=== PATIENT | male | born 1925 | race Two or more races ===

== ENCOUNTER 2016-02-21 16:34 | Inpatient (IN) | payer MEDICARE, OTHER ==
[~2016-02-21] VITALS: Ht 167.6 cm; Wt 52.2 kg
[2016-02-21] MEDS ORDERED: IV SET PRIMARY 1 EA INFUS.SET MC ONE ×3 (16:52→19:41)
[2016-02-21] MEDS ORDERED: IV NS 0.9% 1,000 ML ONE (16:52)
[2016-02-21] MEDS ORDERED: IV NS 0.9% 1,000 ML BAG IV ONE (17:00)
[2016-02-21 17:04] LABS: BASOPHILS % (AUTO) 0.4 % (0.0-2.0); DIFF TOTAL % 100 %; EOSINOPHILS # (AUTO) 0.1 /CMM (0.0-0.7); EOSINOPHILS % (AUTO) 0.8 % (0.0-6.0); HEMATOCRIT 28 % (39-51); HEMOGLOBIN 9.3 g/dL (13.5-17.5); LYMPHOCYTES # (AUTO) 1.6 /CMM (0.8-4.8); LYMPHOCYTES % (AUTO) 18.9 % (20.0-44.0); MEAN CORPUSCULAR HEMOGLOBIN 31 PG (26.0-33.0); MEAN CORPUSCULAR HGB CONC 33 g/dl (31.0-36.0); MEAN CORPUSCULAR VOLUME 94 fL (80-96); MONOCYTES # (AUTO) 0.8 /CMM (0.1-1.30); MONOCYTES % (AUTO) 9.4 % (2.0-12.0); NEUTROPHILS # (AUTO) 5.9 /CMM (1.8-8.9); NEUTROPHILS % (AUTO) 70.5 % (43.0-81.0); PLATELET COUNT (AUTO) 228 /CMM (150-450); RED BLOOD CELL COUNT(AUTO) 3.01 MIL/uL (4.5-6.0); WHITE BLOOD COUNT (AUTO) 8.4 K/uL (4.3-11.0)
[2016-02-21 17:13] LABS: ANION GAP 10 (5-14); CALCIUM, SERUM 8.5 mg/dL (8.5-10.1); CARBON DIOXIDE 28 mmol/L (21-32); CHLORIDE 103 mmol/L (98-107); CREATININE 1.5 mg/dL (0.6-1.3); GLUCOSE 107 mg/dL (74-106); POTASSIUM 5.2 mmol/L (3.5-5.1); SODIUM SERUM 136 mmol/L (136-145); UREA NITROGEN, BLOOD 44 mg/dL (7-18)
[2016-02-21] MEDS ORDERED: IV D5/0.45 NACL 0 ML IV ONE (17:16)
[2016-02-21] MEDS ORDERED: IV SET PRIMARY PUMP SET 1 EA INFUS.SET MC ONE ×2 (17:16→23:28)
[2016-02-21 17:19] LABS: ALANINE AMINOTRANSFERASE 19 U/L (12-78); ALBUMIN 2.4 g/dL (3.4-5.0); ASPARTATE AMINOTRANSFERASE 19 U/L (15-37); BILIRUBIN,DIRECT 0.3 mg/dL (0.0-0.2); BILIRUBIN,TOTAL 0.4 mg/dL (0.2-1.0); INDIRECT BILIRUBIN 0.1 mg/dL (0.0-1.1); TOTAL PROTEIN, SERUM 6.2 g/dL (6.4-8.2)
[2016-02-21 17:21] LABS: TROPONIN I < 0.017 ng/mL (0.00-0.056)
[2016-02-21 17:22] LABS: INR 0.97 (0.87-1.13); PROTHROMBIN TIME 10.5 SECS (9.5-12.7)
[2016-02-21 17:39] LABS: LACTIC ACID 1.4 mmol/L (0.4-2.0)
[2016-02-21] MEDS ORDERED: VALS80TA2 PO (18:10)
[2016-02-21] MEDS ORDERED: LACT10SO7 PO (18:10)
[2016-02-21] MEDS ORDERED: BISA10SU8 RC (18:10)
[2016-02-21] MEDS ORDERED: AMLO5TAB4 PO (18:10)
[2016-02-21] MEDS ORDERED: CLON0.1T PO (18:10)
[2016-02-21] MEDS ORDERED: MAGN400O6 PO (18:10)
[2016-02-21] MEDS ORDERED: OMEG10006 PO (18:10)
[2016-02-21] MEDS ORDERED: ACET-868 PO ×2 (18:10)
[2016-02-21] MEDS ORDERED: DOCU-270 PO (18:10)
[2016-02-21] MEDS ORDERED: ENOX40DI SQ (18:10)
[2016-02-21] MEDS ORDERED: METO25TA6 PO (18:10)
[2016-02-21] MEDS ORDERED: ASPI81TA2 PO (18:10)
[2016-02-21] MEDS ORDERED: BLOO-697 IN (18:10)
[2016-02-21] MEDS ORDERED: SITA100T PO (18:10)
[2016-02-21] MEDS ORDERED: CLOP75TA2 PO (18:10)
[2016-02-21] MEDS ORDERED: SENN8.6T6 PO (18:10)
[2016-02-21] MEDS ORDERED: INSU100V11 SQ (18:11)
[2016-02-21 19:05] LABS: KETONES,URINE Negative (NEGATIVE); LEUKOCYTE ESTERASE ,URINE Large (NEGATIVE)
[2016-02-21 19:19] LABS: ADD UA MICROSCOPIC YES
[2016-02-21] MEDS ORDERED: PIPERACILLIN /TAZOBACTAM 3.375 G in IV D5W 50 ML IV ONE (19:30)
[2016-02-21 19:32] LABS: ADD URINE CULTURE YES
[2016-02-21] MEDS ORDERED: PIPERACILLIN /TAZOBACTAM 3.375 G VIAL IV ONE (19:41)
[2016-02-21] MEDS ORDERED: IV NS 0.9% 50 ML IV ONE (19:41)
[2016-02-21 20:30] VITALS: BP 165/72
[2016-02-21] MEDS ORDERED: IV NS 0.9% 1,000 ML BAG IV PRN (21:00)
[2016-02-21] MEDS ORDERED: DEXTROSE 50%-WATER 50 ML DISP.SYRIN IV PRN (21:00)
[2016-02-21] MEDS ORDERED: ONDANSETRON HCL/PF 4 MG/2 ML VIAL IV PRN (21:00)
[2016-02-21] MEDS ORDERED: hydrALAZINE HCL 25 MG TABLET PO PRN (21:30)
[2016-02-21] MEDS: SENNOSIDES 8.6 MG TABLET PO SCH (23:30)
[2016-02-21] MEDS ORDERED: MAGNESIUM HYDROXIDE 30 ML UDC PO PRN (23:30)
[2016-02-22] VITALS (8 sets, daily range): BP systolic 115–160; BP diastolic 51–75
[2016-02-22] MEDS: BLOOD SUGAR DIAGNOSTIC 1 EACH STRIP IN SCH ×5 (00:08→22:58)
[2016-02-22] MEDS: IV NS 0.9% 1,000 ML IV PRN ×2 (00:09→18:47)
[2016-02-22 07:07] LABS: BASOPHILS % (AUTO) 0.5 % (0.0-2.0); DIFF TOTAL % 100 %; EOSINOPHILS % (AUTO) 0.7 % (0.0-6.0); HEMATOCRIT 28 % (39-51); HEMOGLOBIN 9.4 g/dL (13.5-17.5); LYMPHOCYTES # (AUTO) 1.3 /CMM (0.8-4.8); LYMPHOCYTES % (AUTO) 17.2 % (20.0-44.0); MEAN CORPUSCULAR HEMOGLOBIN 31 PG (26.0-33.0); MEAN CORPUSCULAR HGB CONC 33 g/dl (31.0-36.0); MEAN CORPUSCULAR VOLUME 94 fL (80-96); MONOCYTES # (AUTO) 0.6 /CMM (0.1-1.30); MONOCYTES % (AUTO) 8.1 % (2.0-12.0); NEUTROPHILS # (AUTO) 5.5 /CMM (1.8-8.9); NEUTROPHILS % (AUTO) 73.5 % (43.0-81.0); PLATELET COUNT (AUTO) 212 /CMM (150-450); RED BLOOD CELL COUNT(AUTO) 3.01 MIL/uL (4.5-6.0); WHITE BLOOD COUNT (AUTO) 7.4 K/uL (4.3-11.0)
[2016-02-22 07:37] LABS: CALCIUM, SERUM 8.2 mg/dL (8.5-10.1); CREATININE 1.3 mg/dL (0.6-1.3); PHOSPHORUS 3.6 mg/dL (2.5-4.9); POTASSIUM 5.3 mmol/L (3.5-5.1)
[2016-02-22] MEDS ORDERED: BISACODYL SUPP (10 MG) 10 MG/SUPP.RECT SUPP.RECT RC PRN (09:30)
[2016-02-22] MEDS ORDERED: MAGNESIUM HYDROXIDE 30 ML UDC PO PRN (09:30)
[2016-02-22] MEDS ORDERED: CLONIDINE HCL 0.1 MG TABLET PO PRN (09:30)
[2016-02-22] MEDS ORDERED: ACETAMINOPHEN 325 MG TABLET PO PRN (09:30)
[2016-02-22] MEDS ORDERED: SITAGLIPTIN PHOSPHATE 50 MG TABLET PO SCH (09:30)
[2016-02-22] MEDS ORDERED: LACTULOSE 10 G/15 ML UDC (PYXIS) PO PRN (10:00)
[2016-02-22] MEDS: ASPIRIN 81 MG TAB.CHEW PO SCH (10:15)
[2016-02-22] MEDS: SITAGLIPTIN PHOSPHATE 50 MG TABLET PO SCH (10:16)
[2016-02-22] MEDS: AMLODIPINE BESYLATE 5 MG TABLET PO SCH (10:16)
[2016-02-22] MEDS: CLOPIDOGREL BISULFATE 75 MG TABLET PO SCH (10:16)
[2016-02-22] MEDS: VALSARTAN 80 MG TABLET PO SCH (10:16)
[2016-02-22] MEDS: ENOXAPARIN SODIUM 40 MG/0.4 ML DISP.SYRIN SQ SCH (10:18)
[2016-02-22] MEDS ORDERED: BLOOD SUGAR DIAGNOSTIC 1 EACH STRIP IN SCH (12:00)
[2016-02-22] MEDS: INSULIN REGULAR, HUMAN 100 UNIT/ML 3 ML VIAL SQ PRN ×2 (12:08→17:04)
[2016-02-22] MEDS ORDERED: METOPROLOL TARTRATE 25 MG TABLET PO SCH (17:00)
[2016-02-22] MEDS: DOCUSATE SODIUM 100 MG CAPSULE PO SCH (17:00)
[2016-02-22] MEDS: ACETAMINOPHEN 325 MG TABLET PO PRN (17:00)
[2016-02-22] MEDS: SENNOSIDES 8.6 MG TABLET PO SCH (22:00)
[2016-02-22] MEDS ORDERED: SENNOSIDES 8.6 MG TABLET PO SCH (22:00)
[2016-02-23] VITALS (7 sets, daily range): BP systolic 140–161; BP diastolic 61–96
[2016-02-23] MEDS: BLOOD SUGAR DIAGNOSTIC 1 EACH STRIP IN SCH ×4 (06:50→22:23)
[2016-02-23 06:53] LABS: BASOPHILS % (AUTO) 0.4 % (0.0-2.0); DIFF TOTAL % 100 %; EOSINOPHILS % (AUTO) 0.7 % (0.0-6.0); HEMATOCRIT 27 % (39-51); HEMOGLOBIN 8.9 g/dL (13.5-17.5); LYMPHOCYTES # (AUTO) 1.6 /CMM (0.8-4.8); LYMPHOCYTES % (AUTO) 23.4 % (20.0-44.0); MEAN CORPUSCULAR HEMOGLOBIN 31 PG (26.0-33.0); MEAN CORPUSCULAR HGB CONC 33 g/dl (31.0-36.0); MEAN CORPUSCULAR VOLUME 93 fL (80-96); MONOCYTES # (AUTO) 0.7 /CMM (0.1-1.30); MONOCYTES % (AUTO) 10.5 % (2.0-12.0); NEUTROPHILS # (AUTO) 4.3 /CMM (1.8-8.9); PLATELET COUNT (AUTO) 184 /CMM (150-450); RED BLOOD CELL COUNT(AUTO) 2.88 MIL/uL (4.5-6.0); WHITE BLOOD COUNT (AUTO) 6.7 K/uL (4.3-11.0)
[2016-02-23 07:15] LABS: CALCIUM, SERUM 8.3 mg/dL (8.5-10.1); CREATININE 1.1 mg/dL (0.6-1.3); PHOSPHORUS 3.5 mg/dL (2.5-4.9)
[2016-02-23] MEDS: BOOST GLUCOSE CONTROL VANILLA 237 ML BOX PO SCH ×3 (08:37→17:07)
[2016-02-23] MEDS: CLOPIDOGREL BISULFATE 75 MG TABLET PO SCH (08:38)
[2016-02-23] MEDS: VALSARTAN 80 MG TABLET PO SCH (08:38)
[2016-02-23] MEDS: SITAGLIPTIN PHOSPHATE 50 MG TABLET PO SCH (08:38)
[2016-02-23] MEDS: ASPIRIN 81 MG TAB.CHEW PO SCH (08:39)
[2016-02-23] MEDS: DOCUSATE SODIUM 100 MG CAPSULE PO SCH ×2 (08:39→17:07)
[2016-02-23] MEDS: ACETAMINOPHEN 325 MG TABLET PO SCH (08:39)
[2016-02-23] MEDS: AMLODIPINE BESYLATE 5 MG TABLET PO SCH (08:39)
[2016-02-23] MEDS: ENOXAPARIN SODIUM 40 MG/0.4 ML DISP.SYRIN SQ SCH (08:48)
[2016-02-23] MEDS ORDERED: Medication Not On Formulary EA (Omega-3 Fatty Acids (Omega-3) 1,000 MG) PO SCH (09:00)
[2016-02-23] MEDS: INSULIN REGULAR, HUMAN 100 UNIT/ML 3 ML VIAL SQ PRN ×3 (12:02→22:28)
[2016-02-23] MEDS: IV NS 0.9% 1,000 ML IV PRN (13:52)
[2016-02-23] MEDS: SENNOSIDES 8.6 MG TABLET PO SCH (22:31)
[2016-02-23] MEDS: CLONIDINE HCL 0.1 MG TABLET PO PRN (22:34)
[2016-02-24] VITALS: BP 101/53
[2016-02-24 04:00] VITALS: BP 99/56
[2016-02-24] MEDS ORDERED: PIPERACILLIN /TAZOBACTAM 2.25 G VIAL IV ONE (04:34)
[2016-02-24] MEDS ORDERED: SECONDARY IV SET 1 EA INFUS.SET MC ONE (04:35)
[2016-02-24] MEDS ORDERED: IV D5W 50 ML IV ONE (04:35)
[2016-02-24] MEDS: PIPERACILLIN IV SCH ×3 (05:20→21:56)
[2016-02-24] MEDS: TAZOBACTAM IV SCH ×3 (05:20→21:56)
[2016-02-24] MEDS: D5W IV SCH ×3 (05:20→21:56)
[2016-02-24] MEDS: BLOOD SUGAR DIAGNOSTIC 1 EACH STRIP IN SCH ×4 (06:41→22:01)
[2016-02-24 07:37] LABS: BASOPHILS % (AUTO) 0.5 % (0.0-2.0); DIFF TOTAL % 100 %; EOSINOPHILS # (AUTO) 0.1 /CMM (0.0-0.7); EOSINOPHILS % (AUTO) 1.1 % (0.0-6.0); HEMATOCRIT 25 % (39-51); HEMOGLOBIN 8.4 g/dL (13.5-17.5); LYMPHOCYTES # (AUTO) 1.4 /CMM (0.8-4.8); LYMPHOCYTES % (AUTO) 25.4 % (20.0-44.0); MEAN CORPUSCULAR HEMOGLOBIN 31 PG (26.0-33.0); MEAN CORPUSCULAR HGB CONC 33 g/dl (31.0-36.0); MEAN CORPUSCULAR VOLUME 93 fL (80-96); MONOCYTES # (AUTO) 0.7 /CMM (0.1-1.30); MONOCYTES % (AUTO) 12.8 % (2.0-12.0); NEUTROPHILS # (AUTO) 3.3 /CMM (1.8-8.9); NEUTROPHILS % (AUTO) 60.2 % (43.0-81.0); PLATELET COUNT (AUTO) 153 /CMM (150-450); WHITE BLOOD COUNT (AUTO) 5.5 K/uL (4.3-11.0)
[2016-02-24 08:00] VITALS: BP 129/60
[2016-02-24] MEDS: ASPIRIN 81 MG TAB.CHEW PO SCH (09:30)
[2016-02-24] MEDS: BOOST GLUCOSE CONTROL VANILLA 237 ML BOX PO SCH ×3 (09:30→18:06)
[2016-02-24] MEDS: CLOPIDOGREL BISULFATE 75 MG TABLET PO SCH (09:31)
[2016-02-24] MEDS: AMLODIPINE BESYLATE 5 MG TABLET PO SCH (09:31)
[2016-02-24] MEDS: SITAGLIPTIN PHOSPHATE 50 MG TABLET PO SCH (09:31)
[2016-02-24] MEDS: VALSARTAN 80 MG TABLET PO SCH (09:32)
[2016-02-24] MEDS: ACETAMINOPHEN 325 MG TABLET PO SCH (09:33)
[2016-02-24] MEDS: DOCUSATE SODIUM 100 MG CAPSULE PO SCH ×2 (09:33→18:06)
[2016-02-24] MEDS: ENOXAPARIN SODIUM 40 MG/0.4 ML DISP.SYRIN SQ SCH (09:42)
[2016-02-24 10:27] LABS: CALCIUM, SERUM 8.4 mg/dL (8.5-10.1); CREATININE 1.2 mg/dL (0.6-1.3); PHOSPHORUS 4.3 mg/dL (2.5-4.9); POTASSIUM 5.2 mmol/L (3.5-5.1)
[2016-02-24 16:00] VITALS: BP 100/48
[2016-02-24 20:20] VITALS: BP 126/52
[2016-02-24] MEDS: SENNOSIDES 8.6 MG TABLET PO SCH (22:04)
[2016-02-24] MEDS: IV NS 0.9% 1,000 ML IV PRN (22:05)
[2016-02-25] MEDS: D5W IV SCH (05:14)
[2016-02-25] MEDS: TAZOBACTAM IV SCH (05:14)
[2016-02-25] MEDS: PIPERACILLIN IV SCH (05:14)
[2016-02-25] MEDS: BLOOD SUGAR DIAGNOSTIC 1 EACH STRIP IN SCH ×4 (06:31→21:48)
[2016-02-25] MEDS: INSULIN REGULAR, HUMAN 100 UNIT/ML 3 ML VIAL SQ PRN (06:33)
[2016-02-25 06:58] LABS: BASOPHILS % (AUTO) 0.1 % (0.0-2.0); DIFF TOTAL % 100 %; EOSINOPHILS % (AUTO) 0.1 % (0.0-6.0); HEMATOCRIT 31 % (39-51); HEMOGLOBIN 10.3 g/dL (13.5-17.5); LYMPHOCYTES # (AUTO) 0.5 /CMM (0.8-4.8); LYMPHOCYTES % (AUTO) 5.8 % (20.0-44.0); MEAN CORPUSCULAR HEMOGLOBIN 31 PG (26.0-33.0); MEAN CORPUSCULAR HGB CONC 34 g/dl (31.0-36.0); MEAN CORPUSCULAR VOLUME 93 fL (80-96); MONOCYTES # (AUTO) 0.5 /CMM (0.1-1.30); MONOCYTES % (AUTO) 6.1 % (2.0-12.0); NEUTROPHILS # (AUTO) 7.4 /CMM (1.8-8.9); NEUTROPHILS % (AUTO) 87.9 % (43.0-81.0); PLATELET COUNT (AUTO) 155 /CMM (150-450); RED BLOOD CELL COUNT(AUTO) 3.33 MIL/uL (4.5-6.0); WHITE BLOOD COUNT (AUTO) 8.4 K/uL (4.3-11.0)
[2016-02-25 07:35] LABS: CALCIUM, SERUM 8.6 mg/dL (8.5-10.1); CREATININE 1.2 mg/dL (0.6-1.3); PHOSPHORUS 3.3 mg/dL (2.5-4.9); POTASSIUM 5.1 mmol/L (3.5-5.1)
[2016-02-25 08:00] VITALS: BP 173/78
[2016-02-25] MEDS: BOOST GLUCOSE CONTROL VANILLA 237 ML BOX PO SCH ×3 (08:52→17:29)
[2016-02-25] MEDS: ENOXAPARIN SODIUM 40 MG/0.4 ML DISP.SYRIN SQ SCH (08:54)
[2016-02-25] MEDS: AMLODIPINE BESYLATE 5 MG TABLET PO SCH (09:00)
[2016-02-25] MEDS: VALSARTAN 80 MG TABLET PO SCH (09:00)
[2016-02-25 10:42] VITALS: BP 100/55
[2016-02-25] MEDS: SITAGLIPTIN PHOSPHATE 50 MG TABLET PO SCH (11:01)
[2016-02-25] MEDS: ASPIRIN 81 MG TAB.CHEW PO SCH (11:01)
[2016-02-25] MEDS: DOCUSATE SODIUM 100 MG CAPSULE PO SCH ×2 (11:01→17:29)
[2016-02-25] MEDS: ACETAMINOPHEN 325 MG TABLET PO SCH (11:01)
[2016-02-25] MEDS: CLOPIDOGREL BISULFATE 75 MG TABLET PO SCH (11:01)
[2016-02-25] MEDS ORDERED: POLYETHYLENE GLYCOL 3350 17 GM POWD.PACK PO PRN (15:30)
[2016-02-25 16:00] VITALS: BP 97/50
[2016-02-25] MEDS: IV NS 0.9% 1,000 ML IV PRN (17:29)
[2016-02-25 20:00] VITALS: BP 143/73
[2016-02-25] MEDS: SENNOSIDES 8.6 MG TABLET PO SCH (21:48)
[2016-02-26] MEDS: ACETAMINOPHEN 325 MG TABLET PO PRN (03:21)
[2016-02-26] MEDS: BLOOD SUGAR DIAGNOSTIC 1 EACH STRIP IN SCH ×4 (07:33→22:23)
[2016-02-26 08:00] VITALS: BP 141/64
[2016-02-26] MEDS: BOOST GLUCOSE CONTROL VANILLA 237 ML BOX PO SCH ×3 (08:05→17:00)
[2016-02-26] MEDS: ASPIRIN 81 MG TAB.CHEW PO SCH (08:06)
[2016-02-26] MEDS: SITAGLIPTIN PHOSPHATE 50 MG TABLET PO SCH (08:06)
[2016-02-26] MEDS: ACETAMINOPHEN 325 MG TABLET PO SCH (08:06)
[2016-02-26] MEDS: DOCUSATE SODIUM 100 MG CAPSULE PO SCH ×2 (08:07→16:56)
[2016-02-26] MEDS: CLOPIDOGREL BISULFATE 75 MG TABLET PO SCH (08:07)
[2016-02-26] MEDS: VALSARTAN 80 MG TABLET PO SCH (08:07)
[2016-02-26] MEDS: ENOXAPARIN SODIUM 40 MG/0.4 ML DISP.SYRIN SQ SCH (08:08)
[2016-02-26 11:13] VITALS: BP 141/69
[2016-02-26 16:00] VITALS: BP_SYST 140; BP_SYST 171; BP_DIAS 88
[2016-02-26] MEDS: CLONIDINE HCL 0.1 MG TABLET PO PRN (17:00)
[2016-02-26 17:56] VITALS: BP 148/78
[2016-02-26 20:00] VITALS: BP 132/61
[2016-02-26] MEDS ORDERED: IV NS 0.9% 1,000 ML ONE (22:14)
[2016-02-26] MEDS: SENNOSIDES 8.6 MG TABLET PO SCH (22:25)
[2016-02-26] MEDS: IV NS 0.9% 1,000 ML IV PRN (22:26)
[2016-02-27] MEDS: BLOOD SUGAR DIAGNOSTIC 1 EACH STRIP IN SCH ×4 (05:54→21:44)
[2016-02-27 08:00] VITALS: BP_SYST 154; BP_SYST 166; BP_DIAS 73; BP_DIAS 76
[2016-02-27] MEDS: BOOST GLUCOSE CONTROL VANILLA 237 ML BOX PO SCH ×3 (08:03→17:35)
[2016-02-27] MEDS: ASPIRIN 81 MG TAB.CHEW PO SCH (08:15)
[2016-02-27] MEDS: DOCUSATE SODIUM 100 MG CAPSULE PO SCH ×2 (08:15→17:37)
[2016-02-27] MEDS: CLOPIDOGREL BISULFATE 75 MG TABLET PO SCH (08:15)
[2016-02-27] MEDS: ACETAMINOPHEN 325 MG TABLET PO SCH (08:15)
[2016-02-27] MEDS: VALSARTAN 80 MG TABLET PO SCH (08:15)
[2016-02-27] MEDS: SITAGLIPTIN PHOSPHATE 50 MG TABLET PO SCH (08:15)
[2016-02-27] MEDS: ENOXAPARIN SODIUM 40 MG/0.4 ML DISP.SYRIN SQ SCH (08:16)
[2016-02-27] MEDS ORDERED: ENOXAPARIN SODIUM 30 MG/0.3 ML DISP.SYRIN SQ SCH (11:30)
[2016-02-27 12:13] LABS: BASOPHILS % (AUTO) 0.3 % (0.0-2.0); DIFF TOTAL % 100 %; EOSINOPHILS # (AUTO) 0.1 /CMM (0.0-0.7); EOSINOPHILS % (AUTO) 0.9 % (0.0-6.0); HEMATOCRIT 28 % (39-51); HEMOGLOBIN 9.3 g/dL (13.5-17.5); LYMPHOCYTES # (AUTO) 1.2 /CMM (0.8-4.8); LYMPHOCYTES % (AUTO) 16.7 % (20.0-44.0); MEAN CORPUSCULAR HEMOGLOBIN 31 PG (26.0-33.0); MEAN CORPUSCULAR HGB CONC 33 g/dl (31.0-36.0); MEAN CORPUSCULAR VOLUME 93 fL (80-96); MONOCYTES # (AUTO) 0.5 /CMM (0.1-1.30); MONOCYTES % (AUTO) 7.3 % (2.0-12.0); NEUTROPHILS # (AUTO) 5.2 /CMM (1.8-8.9); NEUTROPHILS % (AUTO) 74.8 % (43.0-81.0); PLATELET COUNT (AUTO) 141 /CMM (150-450); RED BLOOD CELL COUNT(AUTO) 3.02 MIL/uL (4.5-6.0); WHITE BLOOD COUNT (AUTO) 6.9 K/uL (4.3-11.0)
[2016-02-27 12:24] LABS: CALCIUM, SERUM 8.5 mg/dL (8.5-10.1); PHOSPHORUS 2.7 mg/dL (2.5-4.9)
[2016-02-27] MEDS: INSULIN REGULAR, HUMAN 100 UNIT/ML 3 ML VIAL SQ PRN ×2 (12:59→21:47)
[2016-02-27 16:00] VITALS: BP 141/63
[2016-02-27 20:00] VITALS: BP 139/76
[2016-02-27] MEDS: SENNOSIDES 8.6 MG TABLET PO SCH (21:38)
[2016-02-28] MEDS: IV NS 0.9% 1,000 ML IV PRN (01:24)
[2016-02-28] MEDS: BLOOD SUGAR DIAGNOSTIC 1 EACH STRIP IN SCH ×2 (05:40→12:10)
[2016-02-28 08:00] VITALS: BP 186/81
[2016-02-28] MEDS: BOOST GLUCOSE CONTROL VANILLA 237 ML BOX PO SCH ×3 (08:57→17:00)
[2016-02-28] MEDS: DOCUSATE SODIUM 100 MG CAPSULE PO SCH ×2 (08:58→17:00)
[2016-02-28] MEDS: ASPIRIN 81 MG TAB.CHEW PO SCH (08:58)
[2016-02-28] MEDS: SITAGLIPTIN PHOSPHATE 50 MG TABLET PO SCH (08:58)
[2016-02-28] MEDS: CLOPIDOGREL BISULFATE 75 MG TABLET PO SCH (08:58)
[2016-02-28] MEDS: ACETAMINOPHEN 325 MG TABLET PO SCH (08:58)
[2016-02-28] MEDS: ENOXAPARIN SODIUM 40 MG/0.4 ML DISP.SYRIN SQ SCH (08:59)
[2016-02-28] MEDS: VALSARTAN 80 MG TABLET PO SCH (08:59)
[2016-02-28 16:00] VITALS: BP 160/72
[2016-02-28 17:05] VITALS: BP 160/72
== END 2016-02-28 17:11 | DRG 682 ==
LOC: ER 16:36 → TELE 19:51 → MED 02-24 12:48
PROVIDERS: ADMIT Internal Medicine Nephrology; ATTEND Internal Medicine Nephrology
DX: N17.0 Acute kidney failure with tubular necrosis (principal); G93.40 Encephalopathy, unspecified; N39.0 Urinary tract infection, site not specified; E11.9 Type 2 diabetes mellitus without complications; R00.1 Bradycardia, unspecified; I12.9 Hypertensive chronic kidney disease with stage 1 through stage 4 chronic kidney disease, or unspecified chronic kidney disease; N18.9 Chronic kidney disease, unspecified; E11.22 Type 2 diabetes mellitus with diabetic chronic kidney disease; E87.5 Hyperkalemia; F03.90 Unspecified dementia, unspecified severity, without behavioral disturbance, psychotic disturbance, mood disturbance, and anxiety; I73.9 Peripheral vascular disease, unspecified; Z96.649 Presence of unspecified artificial hip joint; Z98.61 Coronary angioplasty status; Z85.028 Personal history of other malignant neoplasm of stomach; Z85.46 Personal history of malignant neoplasm of prostate; Z90.3 Acquired absence of stomach [part of]; Z87.11 Personal history of peptic ulcer disease; Z90.49 Acquired absence of other specified parts of digestive tract; M19.90 Unspecified osteoarthritis, unspecified site; E86.0 Dehydration; M41.9 Scoliosis, unspecified; I77.1 Stricture of artery; D64.9 Anemia, unspecified; I25.10 Atherosclerotic heart disease of native coronary artery without angina pectoris
CPT/HCPCS: 36415; 71010-TC; 80048-TC; 80076-TC; 81000-TC; 82728-TC; 82962-TC; 83540-TC; 83605-TC; 83735-TC; 84100-TC; 84132-TC; 84484-TC; 85025-TC; 85730-TC; 87040-TC; 87081-TC; 87086-TC; 87400; 93307-TC; 93925-TC; 93970-TC; 94799-TC; 97001-TC; 97110-TC; 97530-TC; A4216; A4606; J1650; J1815; J2405; J2543; J3490; J7030; J7060; Z7610